=== PATIENT | female | born 1960 | race Hispanic/Latino ===

== ENCOUNTER 2020-10-25 10:31 | Emergency (ER) | payer OTHER ==
[~2020-10-25] VITALS: Ht 149.9 cm; Wt 77.1 kg
[2020-10-25 11:38] LABS: CLARITY,URINE TURBID (CLEAR); COLOR,URINE RED (YELLOW); LEUKOCYTE ESTERASE ,URINE LARGE (NEGATIVE)
[2020-10-25 11:39] LABS: KETONES,URINE NEGATIVE (NEGATIVE); NITRITE,URINE NEGATIVE (NEGATIVE); PROTEIN,URINE DIPSTICK >=300 (NEGATIVE); URINE UROBILINOGEN 1 mg/dL (0.2 - 1)
[2020-10-25 12:01] LABS: BACTERIA,URINE MODERATE /HPF; RBC,URINE >50 /HPF (0-5)
[2020-10-25] MEDS ORDERED: PYRIDIUM100 MG PO (12:18)
[2020-10-25 12:28] VITALS: BP 140/77
== END 2020-10-25 12:29 | disposition home or self-care (01) ==
LOC: ER 10:35
DX: R30.0 Dysuria (principal); N39.0 Urinary tract infection, site not specified; E78.5 Hyperlipidemia, unspecified
CPT/HCPCS: 81001; 87086; 87186; 99283

== ENCOUNTER 2024-02-23 07:42 | Emergency (ER) | payer OTHER ==
[~2024-02-23] VITALS: Ht 149.9 cm; Wt 73.9 kg
[~2024-02-23 07:42] MED LIST: PYRIDIUM100 MG PO
[2024-02-23 07:50] VITALS: PULSE 80; RESP 18; TEMP 97.5
[2024-02-23] MEDS: KETOROLAC TROMETHAMINE 60 MG/2 ML VIAL IM ONE (08:33)
[2024-02-23] MEDS ORDERED: METHOCARBAMOL500 MG PO (08:55)
[2024-02-23] MEDS ORDERED: PREDNISONE20 MG PO (08:55)
[2024-02-23 09:19] VITALS: BP 130/74; PULSE 73; RESP 16; O2SAT 100
== END 2024-02-23 09:00 | disposition home or self-care (01) ==
LOC: ER 07:50
DX: M25.511 Pain in right shoulder (principal); I10 Essential (primary) hypertension
CPT/HCPCS: 99283; J1885

== ENCOUNTER → 2024-03-08 | Outpatient (REF) | payer OTHER ==
[~2024-03-08] MED LIST changes: +METHOCARBAMOL500 MG PO; +PREDNISONE20 MG PO
== END ==
LOC: US 08:13
PROVIDERS: ATTEND Family Medicine
DX: M79.89 Other specified soft tissue disorders (principal)
CPT/HCPCS: 76882